=== PATIENT | male | born 1985 | race Caucasian/White ===

== ENCOUNTER 2022-08-26 20:00 | Emergency (ER) | payer BC ==
[~2022-08-26] VITALS: Ht 175.2 cm; Wt 72.6 kg
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
[2022-08-26 21:16] VITALS: BP 146/105
== END 2022-08-26 21:20 | disposition home or self-care (01) ==
LOC: ER FS 20:09
DX: S43.101A Unspecified dislocation of right acromioclavicular joint, initial encounter (principal); S30.811A Abrasion of abdominal wall, initial encounter; Z28.310 Unvaccinated for COVID-19; V86.55XA Driver of 3- or 4- wheeled all-terrain vehicle (ATV) injured in nontraffic accident, initial encounter; Y92.410 Unspecified street and highway as the place of occurrence of the external cause
CPT/HCPCS: 73030; 73060